=== PATIENT | male | born 1955 | race Caucasian/White ===

== ENCOUNTER 2024-01-31 09:19 | Emergency (ER) | payer OTHER ==
[2024-01-31 09:25] VITALS: BP 151/74; PULSE 84; RESP 18; TEMP 97.8; BMI 35.1
[2024-01-31] MEDS ORDERED: KETOROLAC TROMETHAMINE 30 MG/1 ML VIAL ONE (09:53)
[2024-01-31] MEDS ORDERED: METHOCARBAMOL 500 MG TABLET ONE (09:53)
[2024-01-31] MEDS ORDERED: LIDOCAINE 4% PATCH TP ONE (09:53)
[2024-01-31] MEDS: KETOROLAC TROMETHAMINE 15 MG/ML VIAL IM ONE (10:00)
[2024-01-31] MEDS: LIDOCAINE 5% TOPICAL PATCH TP ONE (10:01)
[2024-01-31] MEDS: METHOCARBAMOL 500 MG TABLET PO ONE (10:01)
[2024-01-31] MEDS ORDERED: LIDOCAINE PATCH REMOVAL MC ONE (22:00)
== END 2024-01-31 11:24 | disposition home or self-care (01) ==
LOC: JER 09:19
PROC: 3E0133Z Introduction of Anti-inflammatory into Subcutaneous Tissue, Percutaneous Approach (ICD-10-PCS; principal; 2024-01-31)
DX: M54.50 Low back pain, unspecified (principal)
CPT/HCPCS: 71046-TC-FY; 99284-25

== ENCOUNTER 2024-11-05 11:25 | Emergency (ER) | payer OTHER ==
[2024-11-05 11:34] VITALS: BP 124/79; PULSE 72; RESP 19; TEMP 97.9; BMI 34.8
[2024-11-05] MEDS ORDERED: METHOCARBAMOL 500 MG TABLET PO ONE (12:19)
[2024-11-05] MEDS ORDERED: LIDOCAINE 4% PATCH TP ONE ×2 (12:20)
[2024-11-05] MEDS ORDERED: ACETAMINOPHEN 500 MG TABLET (FP) PO ONE (12:20)
[2024-11-05] MEDS ORDERED: ACETAMINOPHEN 500 MG TABLET (FP) ONE (12:21)
[2024-11-05] MEDS ORDERED: METHOCARBAMOL 500 MG TABLET ONE (12:21)
== END 2024-11-05 12:42 | disposition home or self-care (01) ==
LOC: JERFT 11:25
DX: S39.012A Strain of muscle, fascia and tendon of lower back, initial encounter (principal); X58.XXXA Exposure to other specified factors, initial encounter
CPT/HCPCS: 99283-25